=== PATIENT | male | born 2000 | race Caucasian/White ===

== ENCOUNTER 2023-10-04 00:50 | Emergency (ER) | payer OTHER ==
[2023-10-04] MEDS: Diphtheria,Pertussis(Acell),Tetanus Vaccine 0.5 ML Syringe IM ONE (01:18)
[2023-10-04] MEDS: Diphtheria/Tetanus Toxoids,Adult (Td) 0.5 ML SDV IM ONE (01:29)
== END 2023-10-04 01:31 | disposition home or self-care (01) ==
LOC: CC.ED 00:50
DX: S61.431A Puncture wound without foreign body of right hand, initial encounter (principal); F41.9 Anxiety disorder, unspecified; X58.XXXA Exposure to other specified factors, initial encounter
CPT/HCPCS: 90471; 90714; 99283-25